=== PATIENT | male | born 1950 | race Caucasian/White ===

== ENCOUNTER → 2016-09-18 | Outpatient (CLI) | payer MEDICARE, BC ==
[2005-12-07 09:10] VITALS: TEMP 97.6
== END ==
LOC: COL.RAD 09:13
DX: Z13.6 Encounter for screening for cardiovascular disorders (principal); F17.210 Nicotine dependence, cigarettes, uncomplicated

== ENCOUNTER → 2021-05-12 | Outpatient (CLI) | payer MEDICARE ==
[2005-12-07 09:10] VITALS: TEMP 97.6
== END ==
LOC: COL.RAD 05-06 10:30
DX: Z12.2 Encounter for screening for malignant neoplasm of respiratory organs (principal); Z87.891 Personal history of nicotine dependence